=== PATIENT | male | born 1945 ===

== ENCOUNTER 2016-03-27 16:34 | Inpatient (IN) | payer MEDICARE ==
[~2016-03-27] VITALS: Ht 175.3 cm; Wt 90.7 kg
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
[2016-03-27] MEDS ORDERED: HUMULIN R100 U/ML SC (16:50)
[2016-03-27] MEDS ORDERED: PRINIVIL10 MG PO (16:51)
[2016-03-27] MEDS ORDERED: HYTRIN5 MG PO (16:51)
[2016-03-27] MEDS ORDERED: PRAVACHOL20 MG PO ×2 (16:52→16:53)
[2016-03-27] MEDS ORDERED: LANTUS SOL100 UNIT/1 SC (16:56)
[2016-03-27] MEDS ORDERED: BAYER CHEWABLE81 MG PO (16:57)
[2016-03-27 17:15] VITALS: BP 152/85; BMI 27.6
[2016-03-27 19:30] VITALS: BP 126/70
--- NOTE | 2016-03-28 00:04 | NUR ---
B) recieved sitting in the day room, alert and oriented to self, paranoid and confused, keeping to himself, does socialize and converse with staff, I) Administered perscribed medications, redirected and oriented to unit as needed, R) Medication compliant, calm and no hallucinations reported this shift, P) Continue plan of care, continue to monitor.
[2016-03-28 07:19] LABS: HEMOGLOBIN A1C 6.8 % (4.8-6.0)
[2016-03-28 07:44] LABS: ALKALINE PHOSPHATASE 57 U/L (46-116); ALT (SGPT) 29 U/L (10-68); CALC OSMOLALITY 282 mosm/kg (275-300); CALCIUM 8.5 mg/dL (8.5-10.1); CARBON DIOXIDE 24.1 mmol/L (21.0-32.0); CHLORIDE - SERUM 103 mmol/L (98-107); CHOL - HDL RATIO 5.3 ratio (2.3-4.9); CHOLESTEROL, TOTAL 169 mg/dL (0-200); GLUCOSE 136 mg/dL (74-106); HDL CHOLESTEROL 32 mg/dL (32-96); LDL CHOLESTEROL 118 mg/dL (0-100); LDL-HDL RATIO 3.7 ratio (1.5-3.5); SODIUM 137 mmol/L (136-145); THYROID STIMULATING HORMONE 0.43 uIU/mL (0.36-3.74); TRIGLYCERIDE 96 mg/dL (30-200); UREA NITROGEN 31 mg/dL (7-18); eGFR NON AFRICAN AMERICAN 78 mL/min (90-120)
[2016-03-28 08:11] VITALS: BP 123/71
[2016-03-28 09:05] LABS: APPEARANCE CLEAR (CLEAR); BILIRUBIN NEGATIVE (NEGATIVE); COLOR DK YELLOW (YELLOW); GLUCOSE NEGATIVE (NEGATIVE); KETONE MODERATE mg/dL (NEGATIVE); LEUKOCYTE ESTERASE NEGATIVE (NEGATIVE); NITRITE NEGATIVE (NEGATIVE); PROTEIN NEGATIVE (NEGATIVE); SPECIFIC GRAVITY 1.025 (1.005-1.020); UROBILINOGEN NORMAL (NORMAL)
--- NOTE | 2016-03-28 14:01 | NUR ---
B) Patient has stated that he is seeing guys up in the ceiling and he does talk about them, he has had a shower today. He c/o being tired from not working hard. Fell asleep on the couch. Patient says he feels safer here, but he says "I miguelina get what the guys are doing." I) Provide prescribed meds. R) Patient ambulates independently and has said he is ready to go. He is compliant with meds and he is participating in some of the groups. P) Continue plan of care.
[2016-03-28 19:30] VITALS: BP 131/88
--- NOTE | 2016-03-28 21:13 | NUR ---
B) Patient is calm at this time, he went to his room easily. He is sleepy. He does still believe "The guys" are after him, but he is not as suspicious tonight as he has been. Patient ambulates independently. He is cooperative with staff and peers. I) Provide prescribed meds. R) Patient is compliant with meds and unit milieu. P) Continue plan of care.
[2016-03-29 05:14] LABS: RAPID PLASMA REAGIN Non Reactive (Non Reactive)
[2016-03-29 09:46] VITALS: BP 114/58
[2016-03-29 10:12] LABS: FOLATE (FOLIC ACID) - SERUM 17.8 ng/mL (>3.0)
--- NOTE | 2016-03-29 14:43 | NUR ---
RECEIVED THIS AM SITTING IN HALLWAY AT [facility].CALM AND COOPERATIVE.COMPLIANT WITH MEDS.PROPELLS SELF IN WHEELCHAIR.WILL CONTINUE WITH PLAN OF CARE AND MONITOR FOR CHANGES AND SAFETY.
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
[2016-03-29 20:00] VITALS: BP 139/66
--- NOTE | 2016-03-29 22:00 | NUR ---
B) Cooperative, calm and pleasant. No paranoid statements this shift thus far. No signs of patient experiencing hallucinations or delusions. BG @ HS was 199, received 2 Units sliding scale insulin. Quiet, watchful of peers, minimal interaction with others, did speak when spoken to. Soles of feet are dry and scaly, lotion ordered by , but not available from pharmacy yet. I) Administer medications as ordered, redirect and reorient PRN. R) Compliant with medications, Oriented to person, place and time but not to situation. Does not know why he is here. P) Continue to monitor per plan of care.
[2016-03-30 07:41] VITALS: BP 110/61
--- NOTE | 2016-03-30 15:12 | NUR ---
ORIENTED TO PERSON AND PLACE. CALM, COOPERATIVE WITH CARE. MED COMPLIANT. NO SIGNS OF PARANOIA. NO AGGRESSION NOTED. REDIRECTED NEEDED. NO HALLUCINATIONS NOTED. WILL CONTINUE TO MONITOR AND CONTINUE WITH PLAN OF CARE.
[2016-03-30 19:30] VITALS: BP 153/98
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
--- NOTE | 2016-03-30 21:57 | NUR ---
Somewhat calmer but still agitated, anxious and restless. Given Ativan po 0.5mg PRN for anxiety. Patient in hallway near nursing station for closer observation.
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
--- NOTE | 2016-03-31 06:45 | NUR ---
Has slept well since PRNs given. No more aggression displayed. Abrasion on bridge of nose has scabbed over.
[2016-03-31 07:38] VITALS: BP 136/58
[2016-03-31 08:09] LABS: VITAMIN D 25 HYDROXY 14.4 ng/mL (30.0-100.0)
--- NOTE | 2016-03-31 15:01 | NUR ---
Dr. Cannon office called and made aware of consult for testing.
--- NOTE | 2016-03-31 16:27 | NUR ---
Oriented to name, delusional stating" the cowboys on horses are after me, and the monkeys are around my trailer." Refocus to reality versus nonreality, unsuccessful patient continues to be delusional regarding cowboys after him. He carries on brief appropriate conversations then returns to delusions, able to participate in group appropriately. No aggression or paranoia. scab skin tear on bridge of nose. Safety maintained. Continue with plan of care.
[2016-03-31 19:58] VITALS: BP 138/63
--- NOTE | 2016-03-31 20:40 | NUR ---
RECEIVED IN DAYROOM. SETTING IN CHAIR IN CORNER KEEPING TO HIMSELF. CALM AND COOPERATIVE WITH CARE AND ASSESSMENT. NO SIGNS OF HALLUCINATIONS. NO SIGNS OF AGGRESSION THIS EVENING. REDIRECT AND REORIENT NEEDED. PM MEDS GIVEN ORDERED. CONTINUES TO SET QUIETLY IN CHAIR . CONTINUE PLAN OF CARE
[2016-04-01 10:07] VITALS: BP 150/70
[2016-04-01 10:21] VITALS: Ht 175.3 cm; Wt 90.7 kg
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
--- NOTE | 2016-04-01 15:37 | NUR ---
SW CALLED APS TO MAKE REPORT.
--- NOTE | 2016-04-01 18:25 | NUR ---
(B)RECEIVED PATIENT SITTING IN A CHAIR AT [facility] STATION. ORIENTED X3. POOR INSIGHT INTO THE REASON FOR HOSPITALIZATION RELATING "THEY SAID I FELL DOWN TO MUCH. TWICE. DIDN'T REALLY FALL THE FIRST TIME." COOPERATIVE WITH STAFF HOWEVER WILL SPEAK LOWLY AND SAY " MY DOCTOR WILL NOT LIKE THIS AND YOU ALL WILL BEEN HEARING ABOUT THIS. (I)ADMINISTER MEDS AND MONITOR COMPLIANCE, INVOLVE IN REALITY BASED GROUPS AND CONVERSATION. (R)MED COMPLIANT. SITS AND WATCHES OTHERS WITH MINIMAL PARTICIPATION. APPEARS SUSPICIOUS AND GUARDED. (P)CONTINUE POC AND MAINTAIN FALL PRECAUTIONS.
[2016-04-01 19:39] VITALS: BP 122/49
--- NOTE | 2016-04-01 21:05 | NUR ---
B) Patient is calm and compliant, he has not made any remarks about seeing people or hearing them at this time, he is watching tv and interacting with staff. He did jump when I was about to give him insulin, he wanted to see the needle and once he saw it he was ok. His fsbs was 190 and he received 2 units humilin. Patient ambulates independently. I) Provide prescribed meds. R) Patient is compliant with meds and unit milieu. P) Continue plan of care.
[2016-04-02 07:40] VITALS: BP 95/61
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
--- NOTE | 2016-04-02 13:26 | NUR ---
RECEIVED THIS AM SITTING IN CHAIR .IS ORIENTED X 3.CALM AND COOPERATIVE WITH STAFF AND PEERS.SITS QUIETLY AND OBSERVES OTHERS.IS COMPLIANT WITH MEDS.WILL CONTINUE WITH PLAN OF CARE,MONITOR FOR CHANGES AND SAFETY.
--- NOTE | 2016-04-02 21:22 | NUR ---
RECEIVED IN DAYROOM SETTING IN CHAIR WITH PEERS AT HIS SIDE. CALM AND COOPERATIVE WITH CARE AND ASSESSMENT. NO SIGNS OF AGGRESSION. NO SIGNS OF HALLUCINATIONS. SOCIALIZING WITH STAFF AT TIMES. PM MEDS GIVEN ORDERED. STANDING AT NURSES STAION AT THIS TIME. CONTINUE PLAN OF CARE
[2016-04-03 08:10] VITALS: BP 117/56
--- NOTE | 2016-04-03 11:22 | PN ---
PATIENT:PETER DU MEDICAL RECORD: [id number] LOCATION:ISABEL ClineNurysJohana ADMISSION DATE: 03/27/16 PROGRESS NOTE DATE OF SERVICE: 04/02/2016 SUBJECTIVE: No new complaint. OBJECTIVE: The patient has not shown aggression. He is tolerating medication well. He tends to isolate himself a great deal of the time. On exam, mood is for the most part euthymic. Affect rather constricted. Speech is somewhat terse. Content of thought is still positive for delusional ideation. Sensorium shows no change. ASSESSMENT: No change in diagnosis. PLAN: 1. Maintain current medication. 2. Continue supportive therapy. TRANSINT:[id number] Voice Confirmation ID: [id number] DOCUMENT ID: [id number] WAYNE LEONARD III, MD at 1122 CC: [id number] DICTATION DATE: 04/02/16 1210 LAUNCH OPERATOR: 04/02/16 1812 ADM IN [address] [id number] [place] [address]
--- NOTE | 2016-04-03 11:58 | NUR ---
B) Patient is awake and alert, he says he does not feel well, says he feels like he is getting the flu, will report to MD, patient is sitting in gerichair relaxing, fsbs 161, 2 units humulin given in abdo. Patient is able to ambulate independently, did hold lisinipril since bp low. Patient is drooling slightly and did let Dr. Evans be aware. I) Provide prescribed meds. R) Patient is compliant with meds and unit milieu. He knows his name, but he does act confused, knows he is in the hospital, but does not know the name. P) Continue plan of care.
[2016-04-03 19:30] VITALS: BP 140/69
--- NOTE | 2016-04-03 20:49 | NUR ---
Given Ativan 0.5mg po PRN for anxiety, restless, wandering between dayroom and dining room. Unable to sit still. Getting more excited and nervous.
--- NOTE | 2016-04-03 21:40 | NUR ---
Behavior calmer, settling into bed, PRN deemed effective.
--- NOTE | 2016-04-04 02:21 | NUR ---
B) Restlessnes noted but pleasant and cooperative. Cooperative with BG check at HS, = 209, received 4 Units sliding scale. Has dry scaly skin on soles of both feet, left worse than right. Cream applied as ordered. Staff noted less drooling this evening, patient is now on Cogentin. Speech is slurred though. Seeing people in his room and came out in the vickers, escorted back to his room. Claims he can't go back in there, "there are people living in there". I) Administer medications as ordered, redirect and reorient PRN. R) Compliant with medications, skin tear healing on bridge of nose, hallucinating. P) Continue to monitor per plan of care.
--- NOTE | 2016-04-04 03:25 | NUR ---
AWAKE AND UP IN ROOM REMAKING HIS BED, "PEOPLE ARE SLEEPING IN MY BED." HE WAS LOOKING FOR MY RED BOX AND TURNED THE NIGHT STAND ON ITS SIDE. HE WAS EASILY REDIRECTED AND GOT BACK IN BED. ATIVAN 0.5 MG PO GIVEN FOR ANXIETY.
--- NOTE | 2016-04-04 03:47 | PN ---
PATIENT:PETER DU MEDICAL RECORD: [id number] LOCATION:ISABEL Whitehead ADMISSION DATE: 03/27/16 PROGRESS NOTE DATE OF SERVICE: 04/03/2016 SUBJECTIVE: No new complaint. OBJECTIVE: The patient continues to show evidence of visual hallucinations. Staff note that he has shown some parkinsonian symptoms, particularly in terms of sialorrhea and shuffling gait. On exam, mood is slightly anxious. Affect is very constricted. Speech is tangential. Content of thought is still positive for paranoid delusional ideation and hallucinations as above. Sensorium is unchanged. ASSESSMENT: No change in diagnosis. PLAN: 1. Add Cogentin 1 mg b.i.d. 2. Continue other current medications. 3. Continue supportive therapy. TRANSINT:[id number] Voice Confirmation ID: [id number] DOCUMENT ID: [id number] WAYNE LEONARD III, MD at 0347 CC: [id number] DICTATION DATE: 04/03/16 1210 SHEAR HELPER: 04/03/16 1457 ADM IN [id number] [place] [address]
--- NOTE | 2016-04-04 05:15 | NUR ---
Patient up in hallway confused, redirected back to his room. Up in hallway again slurring his words, gesturing but unable to understand what he wants, escorted to his room again. Found patient standing over patient in room 1134, escorted back to room. Then found patient lying on top opf bed in room 1132, and again escorted back to his room. Reoriented each time, short retention of information, poor short term memory. Will monitor, resting quietly in bed now.
[2016-04-04 08:12] VITALS: BP 130/70
--- NOTE | 2016-04-04 10:55 | NUR ---
Nutrition Follow Up: Chart reviewed. Pt is eating 100% x all meals. Glucose continues elevated. Wt loss 1# since admit. No BM per chart review. Meds noted including Humulin, Lantus. Pt with excellent po intake at this time. Rec continue current diet. RD following.
--- NOTE | 2016-04-04 11:15 | NUR ---
B) Patient is confused today and he is hallucinating, he has said he sees a man in a corner, but there is no man there. He is not sure where he is located today. After medications he fell asleep, he did not sleep last night and he is not speaking well because he is not able to stay awake. Patient can ambulate independently, but he is unsteady d/t not sleeping and hallucinations. I) Provide prescribed meds and redirect as needed. R) Patient is compliant with meds, he is not participating in groups today d/t being sleepy. P) Continue plan of care.
--- NOTE | 2016-04-04 15:01 | NUR ---
Patient is unsettled today, he is hallucinating, he keeps saying "The lady says to go" He says "I wish you would make up your mind she said to go and you say to stay" Asked patient if he would like something to help calm him down, he says "No, I'm not anxious, I'm mad, I'm calling my Supervisor In Charge, this is not right, I need to get out of here" Patient is fidgety and can not be still even though he has not slept last night. He is exit seeking, he has tried all the doors and when he can not open them he says "Well, delicia" Tried to redirect and explain to him that he has to stay here for a little bit because the has not d/c'd him.
--- NOTE | 2016-04-04 15:35 | NUR ---
Patient is moving chairs all around and he is anxious. He is not listening, he has cursed. Called Dr. Guzman. New orders received. See MAR.
--- NOTE | 2016-04-04 15:42 | NUR ---
Patient taken away from other patients and did inject patient is left gluteal, he received Geodon 20 mg IM NOW. Will monitor.
--- NOTE | 2016-04-04 15:50 | NUR ---
Patient is still fidgety, he is hallucinating and calling staff SOB's, he has attempted to spit on staff. Continues to be anxious and trying to get up and ambulate, but he is so tired and medicated and more unsteady. Staff assisted patient to another room away from other patients as he is making them get anxious and making the men want to protect the female staff.
--- NOTE | 2016-04-04 16:10 | NUR ---
Patient in dining room in a donya chair, lowered lights, provided patient a pillow and kept the room quiet. Two staff at his side to monitor his behavior as he is still anxious and feisty, but he is not listening nor is he answering staff, he is ignoring staff.
--- NOTE | 2016-04-04 16:20 | NUR ---
Patient closing his eyes and he is beginning to relax with two staff at his side to assist and monitor.
[2016-04-04 19:24] VITALS: BP 119/56
--- NOTE | 2016-04-04 23:31 | NUR ---
B) Recieved sitting in the day room, alert and oriented to self, anxious at times, restless at times, I) Administered perscribed medications, redirected as needed, monitored for falls, R) Medication compliant, able to be redirected P) Continue plan of care, continue to monitor.
[2016-04-05 07:59] VITALS: BP 113/57
--- NOTE | 2016-04-05 09:30 | NUR ---
Lime Supervisor called and said neighbors of patient are looking for patient and the police are involved because his brother filed a missing persons report. Explained that without a code word we can not say one way or another. A few minutes later patients brother called from [place], [place], his name is Rangel Brizuela he is a younger brother. Asked Jermain if he wanted to allow his brother Rangel to know he is here and he said "Yes" Spoke to patients brother and let him know he had been confused and paranoid. His brother said "Well, the last few times I talked to him he did mention that people were looking in his windows" Rangel denied any hx of mental illness in family or in patient. Rangel did ask "Well, can I come and get him and bring him to my place" Patient left his phone number , also referred him to speak with [facility] Wordpress Developer on Thursday. He says he will call back at 5:30 pm. Spoke to Jermain about his brother and he says Rangel and he are close, Rangel is about 5-6 yrs younger than he is, he said he has an older brother, "but he is stuck up" he also said he has an older sister "She says she is institutionalized, she lies". Patient is calmer today and easier to redirect, but his speech is slurred and garbled.
--- NOTE | 2016-04-05 12:33 | NUR ---
RECEIVED THIS AM SITTING IN RECLINER.SLEEPING BUT AROUSES EASILY AND THEN GOES BACK TO SLEEP .DOES AWAKEN FOR BREAKFAST AND THEN STAYS AWAKE FOR LONG PERIODS POST BREAKFAST.NO VISIBLE SIGNS OF HALLUCINATIONS TODAY.WILL CONTINUE WITH PLAN OF CARE,MONITOR FOR CHANGES AND SAFETY.
--- NOTE | 2016-04-05 12:54 | PN ---
PATIENT:PETER DU MEDICAL RECORD: [id number] LOCATION:ISABEL DíazJohana ADMISSION DATE: 03/27/16 PROGRESS NOTE DATE OF SERVICE: 04/04/2016 SUBJECTIVE: The patient's case was discussed with staff. He has no new complaint. OBJECTIVE: The patient is in good behavioral control with limited insight about his condition. He tolerates his medicines well. ASSESSMENT: No change in diagnoses. PLAN: Current medicines have been reviewed and will be maintained. Long-term prognosis is guarded. I am going to give him trazodone to help with sleep consolidation. TRANSINT:[id number] Voice Confirmation ID: [id number] DOCUMENT ID: [id number] BLAYNE HERNANDEZ MD at 1254 CC: [id number] DICTATION DATE: 04/04/16 1229 PATTERN CLERK: 04/04/16 1729 ADM IN [id number] [place] [address]
[2016-04-05 19:30] VITALS: BP 142/84
--- NOTE | 2016-04-06 02:40 | NUR ---
B) Recieved sitting in the day room, alert and oriented to self, very interested in the movie on TV, calm and cooperative, I) Administered perscribed medication, redirected and oriented as needed, R) Medication compliant, hallucinations at times, visual, P) Continue plan of care, continue to monitor.
[2016-04-06 08:38] VITALS: BP 112/47
--- NOTE | 2016-04-06 11:34 | NUR ---
ORIENTED TO PERSON ONLY. REDIRECTED NEEDED BUT NO EVIDENCE OF RETAINING. RESTLESSNESS NOTED. PT IS ANXIOUS. DENIES SI AND DEPRESSION. SCLERA ON BOTH EYES SHOW SOME YELLOW COLORING. PT HAS BEEN HALLUCINATING RATS. MED COMPLIANT. ENCOURAGED PT TO EXPRESS NEEDS AND ATTEND GROUP THERAPY. NO AGGRESSION NOTED. FALL PRECAUTIONS MAINTAINED. WILL CONTINUE WITH PLAN OF CARE.
--- NOTE | 2016-04-06 13:09 | NUR ---
PT IS NOW HALLUCINATING AND SEEING ANTS IN THE BATHROOM. STAFF ASSESSED ROOM AND THERE ARE NO ANTS NOTED.
[2016-04-06 19:30] VITALS: BP 98/50
--- NOTE | 2016-04-06 20:30 | NUR ---
RECEIVED IN DAYO. SETTING IN CHAIR WITH PEERS AT HIS SIDE. CONFUSED. NO SIGNS OF PARANOIA. CALM AND COOPERATIVE WITH CARE AND ASSESSMENT. NO SIGNS OF AGGRESSION. NO SIGNS OF HALLUYCAINATIONS. REDIRECT AND REORIENT NEEDED. CONTINUES TO SET QUIETLY IN RECLINER. CONTINUE PLAN OF CARE
[2016-04-07 11:20] VITALS: BP 106/63
[2016-04-07 12:27] LABS: ALBUMIN 3.7 g/dL (3.4-5.0); ALKALINE PHOSPHATASE 55 U/L (46-116); ALT (SGPT) 32 U/L (10-68); BILIRUBIN - DIRECT 0.14 mg/dL (0.00-0.30); BILIRUBIN - INDIRECT 0.36 mg/dL (0.00-1.00); CALC OSMOLALITY 284 mosm/kg (275-300); CARBON DIOXIDE 27.7 mmol/L (21.0-32.0); CHLORIDE - SERUM 102 mmol/L (98-107); GLUCOSE 255 mg/dL (74-106); POTASSIUM - SERUM 4.6 mmol/L (3.5-5.1); PROTEIN - SERUM 7.1 g/dL (6.4-8.2); SODIUM 137 mmol/L (136-145); UREA NITROGEN 19 mg/dL (7-18); eGFR NON AFRICAN AMERICAN 78 mL/min (90-120)
--- NOTE | 2016-04-07 18:43 | NUR ---
Alert and oriented to self and somewhat to place. Continues to have visual hallucinations, during assessment states "yes, those boys are still after me, see there is about 12 or 13 or them right there." pointing to wall. Unable to refocus to reality. Compliant with medications. Safety maintained. Continue with plan of care.
--- NOTE | 2016-04-07 20:10 | NUR ---
RECEIVED IN DAYROOM. SETTING IN RECLINING CHAIR WITH PEERS AT HIS SIDE. CALM AND COOPERATIVE WITH CARE AND ASSESSMENT. NO SIGNS OF HALLUCINATUIONS. NO SIGNS OF AGGRESSION. NOT SOCIALIZING WITH STAFF OR PEERS. CONTINUES TO REST QUIETLY IN CHAIR. CONTINUE PLAN OF CARE.
[2016-04-07 20:37] VITALS: BP 128/59
--- NOTE | 2016-04-08 01:03 | PN ---
PATIENT:PETER DU MEDICAL RECORD: [id number] LOCATION:[facility] ADMISSION DATE: 03/27/16 PROGRESS NOTE DATE OF SERVICE: 04/07/2016 SUBJECTIVE: No new complaint. OBJECTIVE: The patient has continued to exhibit a great deal of paranoid ideation and confusion. Staff note that sclerae appear to be icteric. We will check liver function studies and notify primary care. On exam, mood is more or less euthymic. Affect rather constricted. Speech is terse. Content of thought is as noted above. Sensorium unchanged. ASSESSMENT: No change in diagnosis. PLAN: 1. Maintain current medication. 2. Continue supportive therapy. TRANSINT:[id number] Voice Confirmation ID: [id number] DOCUMENT ID: [id number] WAYNE LEONARD III, MD at 0103 CC: [id number] DICTATION DATE: 04/07/16 1214 EQUAL OPPORTUNITY ASSISTANT: 04/07/16 1308 ADM IN [facility] [address] [place] [id number]
[2016-04-08 14:08] VITALS: BP 118/60
--- NOTE | 2016-04-08 16:06 | NUR ---
RECEIVED THIS AM SITTING IN RECLINER IN HALLWAY AT NURSES STATION.ORIENTED TO PERSON AND PLACE.REORIENTED TO TIME WITH QUESTIONABLE RESULTS.CALM AND COOPERATIVE.MED COMPLIANT.NO HALLUCINATIONS OBSERVED TODAY.WILL CONTINUE WITH PLAN OF CARE,MONITOR FOR CHANGES AND SAFETY.
[2016-04-08 19:28] VITALS: BP 127/66; BP 133/79
--- NOTE | 2016-04-09 04:18 | NUR ---
PATIENT RESTING IN DAYROOM, ORIENTED TO PERSON, AND SITUATION. PATIENT DENYING HALLUCINATIONS AT THIS TIME. PLEASANT AND COOPERATIVE. CONTINUE PLAN OF CARE.
--- NOTE | 2016-04-09 05:47 | PN ---
PATIENT:PETER DU MEDICAL RECORD: [id number] LOCATION:[facility] ADMISSION DATE: 03/27/16 PROGRESS NOTE DATE OF SERVICE: 04/08/2016 SUBJECTIVE: No new complaint. OBJECTIVE: Liver function studies are entirely within normal limits. Serum bilirubin within normal limits as well. The patient is more alert. He does show occasional agitation and tolerating medications well. On exam, mood is somewhat irritable. Affect is shallow. Speech is tangential. Content of thought still shows moderate delusional ideation. Sensorium unchanged. ASSESSMENT: No change in diagnosis. PLAN: 1. Case management has been in contact with the patient's brother, who is willing to have the patient return with him to the [place] to live. 2. We will continue all current medications and supportive therapy. TRANSINT:[id number] Voice Confirmation ID: [id number] DOCUMENT ID: [id number] WAYNE LEONARD III, MD at 0547 CC: [id number] DICTATION DATE: 04/08/16 1213 PORT DRIER: 04/08/16 1234 ADM IN [facility] [address] [place] [address]
[2016-04-09 07:57] VITALS: BP 98/57
--- NOTE | 2016-04-09 09:46 | NUR ---
Nutrition Follow Up: Chart reviewed. Pt is eating 100% on a Diabetic diet. +BM 04/08/16. Labs noted - Glucose continues elevated. Meds noted including Vit D, Vit B12, Vit C, Lantus, Humulin. Pt with excellent po intake at this time. Rec continue current diet. RD following.
[2016-04-09 13:00] VITALS: BP 114/62
--- NOTE | 2016-04-09 14:02 | NUR ---
SW ATTEMPTED TO CALL PT'S BROTHER, ROLO. WAS UNABLE TO LEAVE AT THIS TIME. GYPSY WILL ATTEMPT PHONE CALL AGAIN.
--- NOTE | 2016-04-09 14:06 | NUR ---
B.) Alert and oriented to name and states place as doctor office and reason for being here as " they said I'm crazy or something." I.) Administer medications and monitor compliance. Monitor for any delusions or hallucinations. Refocus to reality versus nonreality. Encourage group participation and monitor safety. R.) Compliant with medications, patient states yes to hallucination, " oh that was last month, seeing the monkeys and spiders." denies any hallucinations in last 24 hours. Observed to be conversing without any delusions. States " my brother will be here in about 3 days from [place], I'm going to live with him, I talked to him last night." No aggression or paranoia. Fall precautions maintained. P.) Continue plan of care.
--- NOTE | 2016-04-09 17:05 | PN ---
PATIENT:PETER DU MEDICAL RECORD: [id number] LOCATION:[facility] ADMISSION DATE: 03/27/16 PROGRESS NOTE DATE OF SERVICE: 04/09/2016 SUBJECTIVE: No new complaint. OBJECTIVE: The patient is doing well. Case management has established contact with the patient's brother and brother will be arriving in this area within a few days. On exam, mood is euthymic. Affect is bland. Speech remains tangential and somewhat rambling. Content of thought is still positive for moderate delusional ideation. Sensorium shows no change. ASSESSMENT: No change in diagnosis. PLAN: 1. Maintain current medication. 2. Continue supportive therapy. TRANSINT:[id number] Voice Confirmation ID: [id number] DOCUMENT ID: [id number] WAYNE LEONARD III, MD at 1705 CC: [id number] DICTATION DATE: 04/09/16 1114 FEDERAL MEDIATOR: 04/09/16 1143 ADM IN [facility] [id number] [place] [address]
[2016-04-09 19:27] VITALS: BP 106/44
--- NOTE | 2016-04-10 00:26 | NUR ---
B) Recieved sitting in the day room watching TV, alert and oriented to self and hospital, calm and cooperative, social with staff and peers, I) Administered perscribed medications, redirected and oriented as needed, R) Medication compliant, friendly and pleasant this shift, P) Continue plan of care.
[2016-04-10 07:50] VITALS: BP 115/69
--- NOTE | 2016-04-10 11:38 | NUR ---
(B)RECEIVED PATIENT SITTING AT THE BREAKFAST TABLE. ORIENTED TO SELF, YEAR AND RELATES IS AT [facility] [place]. JOKINGLY RELATES REASON FOR HOSPITALIZATION IS "I WHIPPED ALI ON A BET" HOWEVER INSIGHT INTO THE REASON FOR HOSPITALIZATION IS POOR RELATING "SITTING ALL JOKES ASIDE THAT DOCTOR SAID I FELL THREE TIMES AND HE SENT ME HERE THAT QUACK. HE IS SUCH A QUACK." INTERACTS WITH PEERS AND COOPERATIVE WITH STAFF. (I)ADMINISTER MEDS AND MONITOR COMPLIANCE. REORIENT NEEDED. (R)MED COMPLIANT. POOR REORIENTATION DUE TO IMPAIRED ABILITY TO MAINTAIN INFORMATION. (P)CONTINUE POC AND MAINTAIN FALL PRECAUTIONS.
[2016-04-10 22:07] VITALS: BP 119/70
--- NOTE | 2016-04-11 02:41 | NUR ---
B) Recieved sitting in the day room watching the A team on TV, alert and oriented to self and hospital, calm and cooperative, I) Adinistered perscribed medications, redirected and oriented as needed, R) Medication compliant, no hallucinations reported this shift, friendly and pleasant, P) Continue plan of care, continue tomonitor.
[2016-04-11 08:55] VITALS: BP 124/58
--- NOTE | 2016-04-11 09:20 | PN ---
PATIENT:PETER DU MEDICAL RECORD: [id number] LOCATION:[facility] ADMISSION DATE: 03/27/16 PROGRESS NOTE DATE OF SERVICE: 04/10/2016 SUBJECTIVE: No new complaint. OBJECTIVE: The patient is pleased to learn that his brother is coming to get him. Behavior has been well controlled, tolerating medications without difficulty. On exam, mood is euthymic. Affect is pleasant. Speech is fairly fluent. Content of thought shows moderate delusional ideation. Sensorium shows no change. ASSESSMENT: No change in diagnosis. PLAN: 1. Continue current medications. 2. Continue supportive therapy. TRANSINT:[id number] Voice Confirmation ID: [id number] DOCUMENT ID: [id number] WAYNE LEONARD III, MD at 0920 CC: [id number] DICTATION DATE: 04/10/16 1229 INCIDENT COMMANDER: 04/10/16 1249 ADM IN [facility] [address] [place] [address]
--- NOTE | 2016-04-11 13:53 | NUR ---
(B)RECEIVED PATIENT SITTING IN A CHAIR AT THE NURSE'S STATION. ORIENTED TO SELF AND NONTH AEB "I KNOW IT'S A TRAILER PARK BUT I CAN'T SAY THE NAME." POOR INSIGHT INTO THE REASON FOR HOSPITALIZATION RELATING "CARTOGRAPHY TECHNICIAN SAID HE WAS AFRAID I WOULD HURT MYSELF. I HAD FELL THREE TIMES BUT I DIDN'T FALL I SLIPPED TWO TIMES."CALM AND COOPERATIVE. (I)ADMINISTER MEDS AND MONITOR COMPLIANCE. REORIENT NEEDED. (R)MED COMPLIANT. POOR REORIENTAION DUE TO IMPAIRED ABILITY TO COMPREHEND, PROCESS AND RETAIN INFORMATION. (P)CONTINUE POC AND MAINTAIN FALL PRECAUTIONS.
[2016-04-11 19:30] VITALS: BP 99/56
--- NOTE | 2016-04-12 00:48 | NUR ---
Patient calmly watching t.v. in dayroom. Oriented to person, place and time. Denies hallucinations. Amiable and cooperative with medication. Continue to monitor and continue plan of care.
[2016-04-12 09:03] VITALS: BP 144/64
--- NOTE | 2016-04-12 10:20 | NUR ---
Patient brother Patrick has arrive in [facility] and wanted to briefly speak with Mr. Brizuela regarding arrangements and travel back to [place]. Patient conversed appropriately with brother discussing that he will need to find a doctor when he gets there and to be sure to get all his medications before he leaves, verbalized excitement regarding preparation for discharge. Verbalized understanding of discharge when MD writes discharge order.
--- NOTE | 2016-04-12 11:31 | NUR ---
B.) Alert and oriented to name and place, states he is here because " the bread pan greaser were after me and instead of putting [facility] [place] they brought me here." marco a is less confused than he has been. I.) Administer medications and monitor compliance, redirect for any inappropriate behavior, refocus to reality versus nonreality for any delusions. R.) Compliant with medications, patient is oriented to situations, had apprprpiate conversation with his brother and nurse, plans are to go to [place] with his brother to live until he is stable and can then find his own place, goal oriented making plans regarding getting affairs in order before he leaves. " I have to get all my things together, have my medications, search for Md in [place] and need to have all my paper work with me, and I need to not misbehav before then" ( and laughs) P.) Continue plan of care and discharge planning.
[2016-04-12 19:30] VITALS: BP 142/91
--- NOTE | 2016-04-12 21:51 | NUR ---
B) Recieved sittining in the day room watching TV, alert and oriented to self and hospital, calm and quiet, no hallucinations reported or noted, I) Administered perscribed medication, monitored glucose level, R) Medication compliant, social with staff and peers, cooperative with staff, P) Continue plan of care, continue to monitor..
--- NOTE | 2016-04-13 07:54 | PN ---
PATIENT:PETER DU MEDICAL RECORD: [id number] LOCATION:[facility] ADMISSION DATE: 03/27/16 PROGRESS NOTE DATE OF SERVICE: 04/11/2016 SUBJECTIVE: No new complaint. OBJECTIVE: The patient's brother as mentioned previously is on his way to [place]. Discharge could occur as early as Thursday. On exam, mood is euthymic. Affect is bland. Speech is fairly fluent. Content of thought is essentially unchanged. Sensorium is unchanged. ASSESSMENT: No change in diagnoses. PLAN: 1. Maintain current medication. 2. Continue supportive therapy. TRANSINT:[id number] Voice Confirmation ID: [id number] DOCUMENT ID: [id number] WAYNE LEONARD III, MD at 0754 CC: [id number] DICTATION DATE: 04/11/16 1052 HUMAN RESOURCES DEPARTMENT SUPERVISOR: 04/11/16 1304 ADM IN [facility] [address] [place] [address]
[2016-04-13 10:07] VITALS: BP 168/96
--- NOTE | 2016-04-13 13:39 | NUR ---
Staff overheard patient talking about how he can see horses outside of the window. Patient also mentioned that he was hiding from the men and how they had a plan to trivedi him down. He said "They aren't the brightest guys".
--- NOTE | 2016-04-13 15:16 | NUR ---
PT CONTINUES TO HAVE HALLUCINATIONS ABOUT SEEING HORSES. ORIENTED TO PERSON ONLY. COOPERATIVE WITH CARE. DENIES SI. MED COMPLIANT. NO AGGRESSION NOTED. REORIENTED NEEDED BACK TO REALITY AND SURROUNDINGS. FALL PRCAUTIONS MAINTAINED. WILL CONTINUE TO MONITOR AND CONTINUE WITH PLAN OF CARE.
[2016-04-13 19:30] VITALS: BP 115/62
--- NOTE | 2016-04-13 20:26 | NUR ---
RECEIVED IN DAYROOM. SETTING IN RECLINING CHAIR. CALM AND COOPERATIVE WITH CARE AND ASSESSMENT. NO SIGNS OF AGGRESSION. NO SIGNS OF PARANOIA. STATES HE IS GLAD HE IS GOING HOME. ENCOURAGE TO EXPRESS NEEDS. CONTINUES TO SET QUIETLY. CONTINUE PLAN OF CARE
[2016-04-14 10:31] VITALS: BP 99/58
[2016-04-14] MEDS ORDERED: ZYPREXA5 MG PO (11:10)
[2016-04-14] MEDS ORDERED: FEXOFENADINE HC60 MG PO (11:10)
[2016-04-14] MEDS ORDERED: TRAZODONE HCL50 MG PO (11:10)
[2016-04-14] MEDS ORDERED: VITAMIN D5000 UNIT PO (11:11)
[2016-04-14 11:30] VITALS: BP 110/60
--- NOTE | 2016-04-14 12:30 | NUR ---
Patient brother Pedro here to pick him up, all discharge instructions given to patient and his brother regarding how to manage Diabetes and Insulin administration, patient verbalized he has glucometer equipment, Regular and Lantus insulin at home. Sliding scale insulin scale taught to patient and caregiver, patient brother able to verbaly return instructions and verbalized understanding. Prescriptions called in to [facility] pharmacy, patient will have his medical records from his PCP here transfered to [place] where he will be getting a PCP when he arrive. Verbalized understanding of discharge instructions. Personal belongings returned to patient.
--- NOTE | 2016-04-14 15:29 | NUR ---
RECEIVED THIS AM SITTING UP IN CHAIR IN HALLWAY AT NURSES STATION.CALM AND COOPERATIVE.COMPLIANT WITH MEDS.DENIES HALLUCINATIONS TODAY.TO BE DISCHARGED TODAY WITH BROTHER.WILL CONTINUE WITH PLAN OF CARE,MONITOR FOR CHANGES AND SAFETY.
--- NOTE | 2016-04-22 10:22 | DS ---
PATIENT:PETER DU :41 MEDICAL RECORD: [id number] DISCHARGE SUMMARY ADMISSION DATE: 03/27/16 DISCHARGE DATE: 04/14/16 DATE OF ADMISSION: 03/27/2016 DATE OF DISCHARGE: 04/14/2016 HISTORY OF PRESENT ILLNESS: [facility] admission for this 70-year-old single white male. He was brought into the hospital by local law enforcement. He had been hiding in a baptism because he believed that men were trying to harm him. He was exhibiting prominent auditory and visual hallucinations as well as paranoid delusional ideation. The patient was initially taken to the Emergency Department at [place] and later transferred here. He continued to make delusional statements after admission. For further details, please see previously dictated history. COURSE IN THE HOSPITAL: The patient was seen in consultation by Dr. Ludwig, who noted the presence of type 1 diabetes with diabetic neuropathy, hypertension, hyperlipidemia, COPD and history of kidney stones. The patient was started on antipsychotic medication. Dosage of Zyprexa was stabilized at 5 mg twice a day with good reduction in overt psychotic symptoms, although the patient continued to show episodic delusional ideation throughout hospitalization. He was placed on trazodone 50 mg h.s. to help with sleep. He was kept on vitamin D and vitamin B12 supplements as well as Blaire, for inhalant allergies. He was maintained on previous doses of insulin, Pravachol and aspirin. The patient did not have family in the immediate area and so placement became an issue; however, staff was able to contact his brother who lives in [place] and the brother agreed to come pick the patient up and have him return to [place] with him to care for him. At the time of discharge, the patient was in stable condition. FINAL DIAGNOSES: AXIS I: Alzheimer dementia with psychotic features -- improving. AXIS II: No diagnosis. AXIS III: Type 1 diabetes, hypertension, hypercholesterolemia, inhalant allergies. AXIS IV: Moderate. AXIS V: 38. PLAN: 1. The patient is discharged on current medications. 2. Follow up through primary care physician in [place]. 3. Should remain in diabetic diet and activities as tolerated. TRANSINT:[id number] Voice Confirmation ID: [id number] DOCUMENT ID: [id number] DISCHARGE SUMMARY REPORT [id number] PETER DU III, WAYNE Daly MD at 1022 CC: [id number] DICTATION DATE: 04/14/16 1116 SAP TREASURY CONSULTANT: 04/14/16 1316 DIS IN 04/14/16 [facility] [address] [place] [address]
== END 2016-04-14 12:30 | disposition home or self-care (01) | DRG 57 ==
LOC: D.PSYCH 16:34
PROVIDERS: ADMIT Psychiatry & Neurology Psychiatry
DX: G30.9 Alzheimer's disease, unspecified (principal); N39.0 Urinary tract infection, site not specified; F02.80 Dementia in other diseases classified elsewhere, unspecified severity, without behavioral disturbance, psychotic disturbance, mood disturbance, and anxiety; E10.40 Type 1 diabetes mellitus with diabetic neuropathy, unspecified; Z79.4 Long term (current) use of insulin; E78.00 Pure hypercholesterolemia, unspecified; E78.5 Hyperlipidemia, unspecified; J44.9 Chronic obstructive pulmonary disease, unspecified; J31.0 Chronic rhinitis; E55.9 Vitamin D deficiency, unspecified; I10 Essential (primary) hypertension